=== PATIENT | female | born 1990 | race Caucasian/White ===

== ENCOUNTER 2022-03-25 00:23 | Inpatient (IN) | payer OTHER ==
[~2022-03-25] VITALS: Ht 166.4 cm; Wt 58.5 kg
--- NOTE | 2022-03-25 02:07 | NUR ---
COVID SWAB DONE TO BOTH NARES AND SENT TO IN HOUSE LAB.
--- NOTE | 2022-03-25 04:13 | NUR ---
03/25/22 0413 Letitia Lo 0356-PATIENT ARRIVED TO PACU FROM OR AWAKE VERY DROWSY DENIES PAIN OR NAUSEA. ST. LR WITH 20 PITOCIN INFUSING ALONG WITH LR AND 1ST UNIT OF PRBC. FUNDUS FIRM AT UMBILICUS ON RIGHT. LIGHT RUBRA DRAINAGE AND WALTON CATHETER DRAINING YELLOW URINE. 0404-1ST UNIT OF PRBC COMPLETED. 0406-2ND UNIT OF PRBC INFUSING. PATIENT RESTING WITH EEYS CLOSED. DENIES PAIN OR NAUSEA. SR. IVF INFUSING.
--- NOTE | 2022-03-25 12:37 | OR ---
[facility] [address], [place] [address] Signed DATE OF OPERATION: 03/25/2022 SURGEON: Faisal Gilliland MD TIME: 03:48 a.m. SERVICE: OB PROCEDURE: Manual removal of placenta and uterine curettage. INDICATIONS FOR THE PROCEDURE: Retained placenta with severe hemorrhage. NURSE CUSTOMER RELATIONS REPRESENTATIVE: Maria De Jesus. FINDINGS: Retained placenta. ESTIMATED BLOOD LOSS: 2000 mL. DESCRIPTION OF PROCEDURE: After normal vaginal delivery of a female infant weighing 6 pounds 13 ounces, receiving good Apgars. The placenta was retained after the patient received IV Pitocin after delivery of the baby, at the 15 to 20-minute tamia, the patient started bleeding heavily and the placenta was not coming out. The patient had delivered without anesthesia, so manual removal in that setting was not appropriate or safe. Called for the operating room staff, they quickly came in, the patient was taken to the operating room, where she as quick as possible, was put to sleep with general endotracheal anesthesia. The patient joined that interval. I estimated 2000 mL blood loss. Two IVs were in. The patient received IV Pitocin. Again, manual removal, which was quickly successful and did Leonardo's curettage to make sure there were not any remaining pieces. I felt like all the placenta was removed. No further bleeding in the patient besides IV Pitocin was then administered IM Methergine. She was given 2 g Ancef intravenously at this point, and then she was observed for an other 15 minutes and had no further bleeding. She was given 2 units of blood in the operating room because of the estimated blood loss, and Electronically Signed By: FAISAL GILLILAND MD 03/25/22 1237 PATIENT NAME: KENA PATINO OPERATIVE REPORT DATE OF : 88 REPORT #: [id number] PHYSICIAN: FAISAL GILLILAND MD PCP: NO PRIMARY CARE PHYSICIAN REPORT IS CONFIDENTIAL AND NOT TO BE RELEASED WITHOUT AUTHORIZATION [facility] [address] [place] [id number] Signed then was taken to the recovery room in stable condition. Sponge, needle, and instrument counts being done and the only instruments used were ring forceps and a curette as well as wet sponge, which all were accounted for. FINAL DIAGNOSIS: Severe hemorrhage with procedure being manual removal of placenta and uterine curettage. Faisal Gilliland MD DT/MODL /[id number] Copies: ~ Electronically Signed By: FAISAL GILLILAND MD 03/25/22 1237 PATIENT NAME: KENA PATINO OPERATIVE REPORT DATE OF : 88 REPORT #: [id number] PHYSICIAN: FAISAL GILLILAND MD PCP: NO PRIMARY CARE PHYSICIAN REPORT IS CONFIDENTIAL AND NOT TO BE RELEASED WITHOUT AUTHORIZATION
--- NOTE | 2022-03-26 10:52 | PR ---
[facility] [address] [facility] [place], [place] [address] Signed PP Progress Notes Datetime Report Generated by CPN: 03/26/2022 10:52 SUBJECTIVE: [id number] Pain: Within Normal Limits Pain Comments: No dizziness. Mild to moderate cramps. Nausea/Vomiting: Denies Nausea/Vomiting Comments: Minimal bleeding Flatus: No Flatus Comments: No chills Bowel Movement: No Vital Signs: [id number] Vital Signs: Reviewed; Within Normal Limits Notable Details: PP Hgb/Hct = 10.8/32.6 Cardiovascular: Normal Respiratory: Normal Abdomen/Uterus: Normal Lochia: Normal Vulva/Perineum: Normal Breasts: Not Done CVA Tenderness: Not Done Extremities: Normal IMPRESSION/PLAN/PROCEDURES: [id number] Impression: Normal Progression Other Impression: s/p sever PP hemorrhage secondary to retained placenta Plan: Discharge Procedures: None Progress Notes: Doing well without compalint, minimal bleeding since PP Curettage. No dizziness. Patient wants to go home. Signing Physician: Charo Villarreal MD Copies: ~ *Electronically Signed* 03/26/22 1052 CHARO VILLARREAL MD PATIENT NAME: KENA PATINO PROGRESS NOTE DATE OF : 88 PHYSICIAN: CHARO VILLARREAL MD RPT #: [id number] REPORT IS CONFIDENTIAL AND NOT TO BE RELEASED WITHOUT AUTHORIZATION
== END 2022-03-26 12:45 | disposition home or self-care (01) | DRG 806 ==
LOC: FBCO 00:23 → FBC 00:44
PROVIDERS: ADMIT Obstetrics & Gynecology; ATTEND Obstetrics & Gynecology
PROC: 10E0XZZ Delivery of Products of Conception, External Approach (ICD-10-PCS; 2022-03-25)
PROC: 10D17Z9 Manual Extraction of Products of Conception, Retained, Via Natural or Artificial Opening (ICD-10-PCS; 2022-03-25)
PROC: 10907ZC Drainage of Amniotic Fluid, Therapeutic from Products of Conception, Via Natural or Artificial Opening (ICD-10-PCS; 2022-03-25)
PROC: 30233N1 Transfusion of Nonautologous Red Blood Cells into Peripheral Vein, Percutaneous Approach (ICD-10-PCS; principal; 2022-03-25 03:00)
DX: O48.0 Post-term pregnancy (principal); O72.2 Delayed and secondary postpartum hemorrhage; Z37.0 Single live birth; Z20.822 Contact with and (suspected) exposure to COVID-19; Z3A.40 40 weeks gestation of pregnancy; Z67.10 Type A blood, Rh positive
CPT/HCPCS: 36415; 85025; 85027; 86850; 86900; 86901; 86922; 87502; A9270; C9803; J0330; J0690; J2250; J2370; J2590; J2704; J3010; J7121; P9016; U0003

== ENCOUNTER 2024-09-16 06:00 | Day surgery (SDC) | payer OTHER ==
[2024-09-14 16:47] VITALS: BP 124/85
[~2024-09-16] VITALS: Ht 165.1 cm; Wt 96.8 kg
[~2024-09-16 06:00] MED LIST: FERROUS SULFAT325 MG PO; LACTATED RINGER'S 1,000 ML IV SCH; PRENATAL TABLE1 EAC2 PO; SERTRALINE HCL50 MG PO; SKYLA1 EAC1 IY
[2024-09-16 06:17] VITALS: BP 118/77
[2024-09-16] MEDS ORDERED: MULTI VITAMIN1 EACH PO (06:20)
[2024-09-16] MEDS ORDERED: propofoL 200 MG/20 ML VIAL ONE (06:58)
[2024-09-16] MEDS ORDERED: ROCURONIUM BROMIDE 50 MG/5 ML SYR ONE (06:58)
[2024-09-16] MEDS ORDERED: fentaNYL citrate 100 MCG/2 ML VIAL ONE (06:58)
[2024-09-16] MEDS ORDERED: MIDAZOLAM HCL 2 MG/2 ML VIAL ONE (06:58)
[2024-09-16] MEDS ORDERED: dexmedeTOMIDine HCl 200 MCG/2 ML VIAL ONE (06:58)
[2024-09-16] MEDS ORDERED: FAMOTIDINE 20 MG/ 2 ML VIAL IV SCH (07:00)
[2024-09-16] MEDS ORDERED: METOCLOPRAMIDE HCL 10 MG/2 ML SDV IV SCH (07:00)
[2024-09-16] MEDS ORDERED: LIDOCAINE HCL 2% 5 ML SDV ONE (07:00)
[2024-09-16] MEDS ORDERED: LIDOCAINE HCL 1% 5 ML SDV INJ ONE (07:00)
[2024-09-16] MEDS ORDERED: IBLOOD GLUCOSE TEST STRIP 1 EA TEST VI PRN ×2 (07:00→08:30)
[2024-09-16] MEDS ORDERED: LIDOCAINE HCL 1% 30 ML SDV ONE (07:19)
[2024-09-16] MEDS ORDERED: SUGAMMADEX SODIUM 200 MG/2 ML ML ONE (07:24)
--- NOTE | 2024-09-16 07:31 | NUR ---
PT NOT AVAILABLE FOR VISIT. PROVIDED PRAYER.
[2024-09-16] MEDS ORDERED: KETOROLAC TROMETHAMINE 30 MG/ML VIAL ONE (07:54)
[2024-09-16] MEDS ORDERED: DEXAMETHASONE SOD PHOS 4 MG/ML VIAL ONE (07:54)
[2024-09-16] MEDS ORDERED: ondansetron HCL 4 MG/2 ML VIAL ONE (07:54)
[2024-09-16] MEDS ORDERED: LACTATED RINGER'S 1,000 ML IV ONE (07:55)
[2024-09-16] MEDS ORDERED: PROCHLORPERAZINE EDISYLATE 10 MG/2 ML VIAL IV PRN (08:15)
[2024-09-16] MEDS ORDERED: OXYCODONE/APAP 5/325 TAB PO PRN (08:15)
[2024-09-16] MEDS ORDERED: NALOXONE HCL 0.4 MG SYR IV PRN ×2 (08:15→08:30)
[2024-09-16] MEDS ORDERED: LACTATED RINGER'S 1,000 ML IV SCH (08:15)
[2024-09-16] MEDS ORDERED: MAGNESIUM HYDROXIDE/AL HYDROX 30 ML CUP PO PRN (08:15)
[2024-09-16] MEDS ORDERED: FAMOTIDINE 20 MG TAB PO PRN (08:15)
[2024-09-16] MEDS ORDERED: ondansetron HCL 4 MG TAB PO PRN (08:15)
[2024-09-16] MEDS ORDERED: MORPHINE SULFATE 10 MG/ML VIAL IV PRN (08:15)
[2024-09-16] MEDS ORDERED: METOCLOPRAMIDE HCL 10 MG/2 ML SDV IV PRN (08:15)
[2024-09-16] MEDS ORDERED: ondansetron HCL 4 MG/2 ML VIAL IV PRN ×2 (08:15→08:30)
--- NOTE | 2024-09-16 08:27 | NUR ---
09/16/24 0827 Skye Medeiros PATIENT WAKES SUDDENLY AND FOLLOWS DIRECTIONS TO OPEN HER MOUTH. ORAL AIRWAY IS REMOVED. PATIENT DENIES PAIN AND NAUSEA. SHE ASKS "IF IS IT OKAY IF I JUST SIT IN HERE AND SLEEP?" PATIENT ENCOURAGED TO REST. SHE RETURNS TO RESTING WITH HER EYES CLOSED. RESPIRATIONS ARE EVEN AND UNLABORED. OXGYEN IS DISCONTINUED AND OXYGEN MASK IS REMOVED.
[2024-09-16] MEDS ORDERED: fentaNYL citrate 50 MCG/ML SDV IV PRN (08:30)
[2024-09-16] MEDS ORDERED: fentaNYL citrate 50 MCG/ML SDV ONE (08:40)
[2024-09-16 08:54] VITALS: BP 101/60
--- NOTE | 2024-09-16 09:00 | NUR ---
0892-PT BACK TO ROOM FROM PACU ON RA. RECEIVED REPORT FROM SAE HERZOG. PT IS DROWSY. RATES PAIN 4/10 AND STATES THIS IS TOLERABLE. DENIES NAUSEA. PROVIDED PT WITH WATER AND PUDDING. NO OTHER NEEDS AT THIS TIME. CALL LIGHT WITHIN REACH.
[2024-09-16] MEDS ORDERED: SEVOFLURANE 250 ML BTL INH ONE (09:10)
[2024-09-16 09:43] VITALS: BP 110/70
--- NOTE | 2024-09-16 09:47 | NUR ---
PT IS LAYING IN BED AWAKE. RESP EVEN AND UNLABORED. RATES PAIN 4/10 AND THIS IS TOLERABLE. NO OTHER NEEDS AT THIS TIME. CALL LIGHT WITHIN REACH. PT HAS WATER.
[2024-09-16 10:57] VITALS: BP 120/73
--- NOTE | 2024-09-16 11:39 | NUR ---
LE 1057-PT LAYING IN BED ON HER PHONE. RESP EVEN AND UNLABORED. RATES PAIN 5/10. PT WOULD LIKE TO USE RESTROOM. LE 1101-PAIN MEDICATION GIVEN PER EMAR. LE 1105-PT UP TO BEDSIDE. DENIES DIZZINESS. PT AMBULATES TO RESTROOM. GAIT STEADY AND TOLERATED WELL. PT VOIDS 500ML OF YELLOW URINE. LE 1108-PT BACK TO BED. NO OTHER NEEDS AT THIS TIME. CALL LIGHT WITHIN REACH.
[2024-09-16 11:53] VITALS: BP 118/69
--- NOTE | 2024-09-16 12:26 | NUR ---
1157-PT LAYING IN BED. RESP EVEN AND UNLABORED. STATE PAIN IS MILD. DENIES NAUSEA. PT IS READY TO GO HOME. PT WILL GET DRESSED. CALL LIGHT WITHIN REACH.
--- NOTE | 2024-09-16 12:27 | NUR ---
1205-WENT OVER DISCHARGE INSTRUCTIONS WITH PT. WENT OVER POSTOP MEDICATIONS. ALL QUESTIONS ANSWERED. 1207-PT AMBULATES TO WHEELCHAIR AND RIDE PROVIDED TO FRONT OF HOSPITAL WHERE WAS WAITING WITH THE CAR.
[2024-09-16] MEDS ORDERED: IBUPROFEN 800 MG TAB PO SCH (14:00)
--- NOTE | 2024-09-20 15:23 | OR ---
[facility] [address] [place], [place] [address] Signed DATE OF OPERATION: 09/16/2024 SURGEON: Marilee Naranjo MD PREOPERATIVE DIAGNOSES: 1. Pelvic pain. 2. Dysmenorrhea. POSTOPERATIVE DIAGNOSES: 1. Pelvic pain. 2. Dysmenorrhea. 3. Normal pelvis. PROCEDURE: Diagnostic laparoscopy. ANESTHESIA: General ET. ESTIMATED BLOOD LOSS: Minimal. DRAINS: None. INDICATIONS AND FINDINGS: The patient is a 33-year-old female, currently using an IUD for control, who has been having increasing pain in the pelvis as well as some increased pain with bleeding. She was interested in determining if there was a particular cause for her pain and desired laparoscopy. At the time of surgery, exam under anesthesia was normal. At the time of laparoscopy, the entire pelvis appeared normal without any evidence of any endometriosis or adhesions. DESCRIPTION OF PROCEDURE: The patient was prepped and draped in the dorsal lithotomy position. An open-sided speculum was placed vaginally and the anterior lip of the cervix was visualized and grasped with single-tooth tenaculum. The Ede cannula was then placed. Attention was then directed above. The infraumbilical area was injected with 0.5% Marcaine plain. An incision was made with a knife, and each layer was serially elevated, incised until the fascia was opened and identified and stay sutures of 0 Vicryl placed. The peritoneum Electronically Signed By: MARILEE NARANJO MD 09/20/24 1523 PATIENT NAME: KENA PATINO OPERATIVE REPORT DATE OF : 88 REPORT #: [id number] PHYSICIAN: MARILEE NARANJO MD PCP: TOM KWAN MD REPORT IS CONFIDENTIAL AND NOT TO BE RELEASED WITHOUT AUTHORIZATION [facility] [address] [place], [place] [address] Signed was opened bluntly. The Vivi cannula was placed and the balloon inflated. Placement of the scope confirmed proper positioning. CO2 was then introduced into the abdomen under low pressures. When the abdomen was appropriately distended, secondary port was placed. This was placed on the left side. This area was transilluminated, injected with Marcaine, incision made with a knife and a 5 mm port placed under direct vision. Following this, the pelvis was carefully evaluated and there was no evidence of any pathology. Following this, the instruments were removed. As much CO2 as possible was allowed to escape. The fascial incision of the umbilicus was re-identified and closed with a running suture of 0 Vicryl. The stay sutures were tied across as well. The skin incisions were closed with subcuticular sutures of 3-0 Vicryl Rapide. Attention was directed down below and the vaginal instruments were removed. There was no evidence of any bleeding from the tenaculum site. All sponge and needle counts were correct. She was taken to the recovery room in good condition. MD YANIRA Higthower/AMBER /[id number] Copies: ~ Electronically Signed By: MARILEE NARANJO MD 09/20/24 1523 PATIENT NAME: KENA PATINO OPERATIVE REPORT DATE OF : 88 REPORT #: [id number] PHYSICIAN: MARILEE NARANJO MD PCP: TOM KWAN MD REPORT IS CONFIDENTIAL AND NOT TO BE RELEASED WITHOUT AUTHORIZATION
== END 2024-09-16 12:07 | disposition home or self-care (01) ==
LOC: DS 06:00
PROVIDERS: ATTEND Obstetrics & Gynecology
PROC: 0WJG4ZZ Inspection of Peritoneal Cavity, Percutaneous Endoscopic Approach (ICD-10-PCS; principal; 2024-09-16 07:30)
DX: R10.2 Pelvic and perineal pain (principal); N94.4 Primary dysmenorrhea; E66.9 Obesity, unspecified; Z68.36 Body mass index [BMI] 36.0-36.9, adult; Z97.5 Presence of (intrauterine) contraceptive device; Z79.899 Other long term (current) drug therapy
CPT/HCPCS: 00790; J1100; J1885; J2003; J2250; J2405; J2704; J2765; J3010; J3490; J7121